=== PATIENT | female | born 1970 | race African-American/Black ===

== ENCOUNTER 2018-10-01 13:54 | Emergency (ER) | payer OTHER ==
[~2018-10-01] VITALS: Ht 175.3 cm; Wt 93.2 kg
[2018-10-01 14:02] VITALS: BP 179/112; PULSE 100; RESP 19; Ht 175.3 cm; Wt 93.2 kg
--- NOTE | 2018-10-01 15:26 | ERD ---
ER Documentation Chief Complaint Chief Complaint R. shoulder/arm pain x 2 weeks pain with urination x 1 week HPI This is a 47-year-old female who complains of several weeks of pain in the right shoulder and trapezius. She states on occasion she feels a burning pain that radiates down the arm to her digits 2 3 and 4. She says that she lifts her arm up and wraps the arm over the vertex of her head that this will relieve the numbness and burning pain. No chest pain shortness of breath no weakness denies any neck pain. The pain is located in the distal trapezius shoulder area is worse with movement better with rest. ROS All systems reviewed and are negative except as per history of present illness. Allergies Allergies: Uncoded Allergies: PENICILLIN (Allergy, Unknown, 10/01/18) PMhx/Soc Medical and Surgical Hx: pt denies Medical Hx, pt denies Surgical Hx Hx Alcohol Use: Yes Hx Substance Use: No Hx Tobacco Use: No Smoking Status: Never smoker FmHx Family History: No coronary disease Physical Exam Vitals Vital Signs Date Temp Pulse Resp B/P (MAP) Pulse Ox O2 O2 Flow FiO2 Time Delivery Rate 10/01/18 98.0 100 19 179/112 98 14:02 (134) Physical Exam Const: Well-developed, well-nourished Head: Atraumatic, normocephalic Eyes: Normal Conjunctiva, PERRLA, EOMI, normal sclera, no nystagmus ENT: Normal External Ears, Nose and Mouth, moist mucus membranes. Neck: Full range of motion. No meningismus, no lymphadenopathy. Resp: Clear to auscultation bilaterally, no wheezing, rhonchi, rales Cardio: Regular rate and rhythm, no murmurs, S1 S2 present Abd: Soft, non tender x 4, non distended. Normal bowel sounds, no guarding or rebound, no pulsitile abdominal masses or bruits Skin: No petechiae or rashes, no ecchymosis , no maculopapular rash Back: No midline or flank tenderness Ext: No cyanosis, or edema, FROM x 4, normal inspection, neurovascularly intact x 4, raising the right arm above her head will induce the burning pain down the arm which which goes to the fingers, if she rotates her head to the left with right arm extension with wrist flexed it also induces the same symptoms. Neur: Awake and alert, STR 5/5 x 4, sensation intact x 4, no focal findings, cerebellum intact Psych: Normal Mood and Affect Procedures/MDM Patient: PREMA NEWSOME : 1970 Age: 47 Sex: F MR #: [id number] DOS: 10/01/18 1419 Ordering MD: ZAID HAWLEY DO Location: E/R Room/Bed: PROCEDURE: XR Chest. CLINICAL INDICATION: Chest pain. Trauma. TECHNIQUE: Single portable view of the chest was obtained. COMPARISON: None. FINDINGS: Cardiac/vascular structures: Normal cardiomediastinal silhouette. Pulmonary: Lungs are clear. No pleural effusion. No evidence of pneumothorax. Osseous structures: Normal Soft tissues: Normal IMPRESSION: No acute cardiopulmonary disease. RPTAT:AAJJ Physician Teresa Date Time Electronically viewed and signed by Naomi Eaton Physician on 10/01/2018 14:51 MH/ CC: ZAID HAWLEY DO [id number] MR #: [id number] DOS: 10/01/18 1419 Ordering MD: ZAID HAWLEY DO Location: E/R Room/Bed: PROCEDURE: XR Shoulder. CLINICAL INDICATION: Shoulder pain. Trauma TECHNIQUE: 3 views of the right shoulder are available for review. COMPARISON: None available FINDINGS: The humeral head is located. The AC joint is maintained. There is no acute osseous or articular abnormality. No evidence for fracture. The visualized portions of the right lung are clear . IMPRESSION: 1. Preserved glenohumeral joint. 2. No acute fracture or dislocation is seen. RPTAT: UU .Lauri Betancur MD, Date Time Electronically viewed and signed by .Lauri Betancur MD, MD on 10/01/2018 14:57 .d/ CC: ZAID HAWLEY DO [id number] Patient showing signs of a cervical radiculopathy. No signs of thoracic outlet syndrome with any type of x-ray abnormality. Discussed with her the need to see her doctor to order an MRI of her neck to rule out nerve impingement from a bulging disc. Will discharge home with a sling as well as pain medication and a brief trial of steroids. Departure Diagnosis: Primary Impression: Cervical radiculopathy Condition: Stable ZAID HAWLEY DO Oct 01, 2018 15:26
[2018-10-01] MEDS ORDERED: HYDR-4011 PO (15:28)
[2018-10-01] MEDS ORDERED: PRED20TA PO (15:28)
[2018-10-01] MEDS ORDERED: IBUP800T48 PO (15:28)
[2018-10-01] MEDS ORDERED: METH500T PO (15:28)
[2018-10-01] MEDS ORDERED: CIPR500T4 PO (16:04)
== END 2018-10-01 16:11 | disposition home or self-care (01) ==
LOC: E/R 13:54
DX: M54.12 Radiculopathy, cervical region (principal)
CPT/HCPCS: 71045; 73030; Z7502